=== PATIENT | female | born 1935 | race Two or more races ===

== ENCOUNTER 2022-07-29 20:02 | Emergency (ER) | payer OTHER ==
[~2022-07-29] VITALS: Ht 162.6 cm; Wt 50.0 kg
[2022-07-29] MEDS ORDERED: fentaNYL CITRATE 100 MCG/2 ML VL IV ONE (20:45)
[2022-07-29 21:30] LABS: Basophils # (auto) 0 10 ^3/uL (0-0.2); Basophils % (auto) 0.4 % (0.0-2.0); Eosinophils # (auto) 0 10 ^3/uL (0-0.8); Eosinophils % (auto) 0.3 % (0.0-7.0); Hematocrit 39.1 % (36.0-46.0); Hemoglobin 13.3 g/dL (12.2-16.2); Lymphocytes # (auto) 1.2 10 ^3/uL (0.4-5.4); Lymphocytes % (auto) 10.9 % (10.0-50.0); Mean Corpuscular Hemoglobin 29.7 pg (28.0-32.0); Mean Corpuscular Hgb Conc. 34.1 g/dL (32.0-36.0); Monocytes # (auto) 0.6 10 ^3/uL (0-1.3); Monocytes % (auto) 5.4 % (0.0-12.0); Neutrophils # (auto) 9.4 10 ^3/uL (1.6-8.6); Nucleated Red Blood Cells % 0.1 %; Red Blood Cells 4.49 10^6/uL (4.0-5.20); Red Cell Distribution Width 14.4 % (11.8-14.3); White Blood Cell 11.4 10^3/uL (4.4-10.8)
[2022-07-29 21:59] LABS: Albumin 3.7 g/dL (3.4-5.0); Calcium 8.7 mg/dL (8.5-10.1); Magnesium 2.4 mg/dL (1.6-2.6); Potassium 3.4 mmol/L (3.5-5.1)
[2022-07-29 22:00] LABS: INR 1.01 (0.9-1.15); Partial Thromboplastin Time 28.8 sec (24.6-33.4)
[2022-07-29 22:03] LABS: BUN/Creatinine Ratio 17.7 (10.0-20.0); Bilirubin, Total 0.3 mg/dL (0.2-1.0); Total Protein 8.1 g/dL (6.4-8.2)
[2022-07-30] MEDS ORDERED: ONDANSETRON HCL 4 MG/2 ML VIAL IV ONE (02:45)
[2022-07-30] MEDS ORDERED: HYDROmorphone HCL 2 MG/ML VL/or syr IV ONE (02:45)
[2022-07-30] MEDS ORDERED: MORPHINE SULFATE INJ 2 MG/ml SYRG IV PRN (03:15)
[2022-07-30] MEDS ORDERED: ACETAMINOPHEN 325 MG TAB PO PRN (03:15)
[2022-07-30] MEDS ORDERED: HYDROcodone-ACET 5/325MG TAB PO PRN (03:15)
[2022-07-30] MEDS ORDERED: ONDANSETRON HCL 4 MG/2 ML VIAL IV PRN (03:15)
[2022-07-30] MEDS ORDERED: levETIRAcetam 500 MG/5ML INJ IV ONE (03:51)
[2022-07-30 04:10] VITALS: BP 178/74
[2022-07-30] MEDS ORDERED: hydrALAZINE HCL 20 MG/ML VL IV ONE (04:15)
[2022-07-30] MEDS ORDERED: PANTOPRAZOLE 40 MG TAB PO SCH (10:00)
== END 2022-07-30 04:10 | disposition short-term general hospital (02) ==
LOC: EDBD 20:02 → ER 20:07
DX: S72.142A Displaced intertrochanteric fracture of left femur, initial encounter for closed fracture (principal); S06.6X0A Traumatic subarachnoid hemorrhage without loss of consciousness, initial encounter; R07.89 Other chest pain; W01.0XXA Fall on same level from slipping, tripping and stumbling without subsequent striking against object, initial encounter; Y93.89 Activity, other specified; Y92.89 Other specified places as the place of occurrence of the external cause; Y99.8 Other external cause status
CPT/HCPCS: 36415; 70450; 71045; 71250; 72125; 73502; 73700; 74176; 80053; 83735; 83880; 84484; 85025; 85610; 85730; 96365; 96375; 99285; J0360; J1170; J1953; J2405; J3010; J7060